=== PATIENT | male | born 1975 | race African-American/Black ===

== ENCOUNTER → 2017-04-22 | Outpatient (CLI) | payer BC ==
--- NOTE | ~2017-04-22 | US5 ---
[facility] A Service of [facility] & [facility] RADIOLOGY TEXT RESULTS PATIENT: MATYT BRAVO LOCATION: CGUS : 73 UNIT #: [id number] AGE: [address]: Steven Pandey MD SEX: M ORDER DR: [id number] [facility] [address]. [place], [place] [address] [id number] O MR#: [id number] Acc #: [id number] NAME: MATTY BRAVO : 1975 SEX: M STUDY DATE/TIME: 04/22/2017 9:10 UNIT: CGUS ROOM: STUDY DESCRIPTION: US Abdominal Complete Attending Physician: Steven Pandey M.D. Referring Physician: Steven Pandey M.D. Ordering Physician: Steven Pandey M.D. Primary Care Physician: Steven Pandey M.D. MEDICAL IMAGING REPORT This report is preliminary unless electronic signature is present EXAM Abdominal ultrasound, complete, 04/22/2017. HISTORY Abdomen pain for 3 months with nausea, vomiting and diarrhea. FINDINGS The liver demonstrates an increase in echotexture with attenuation of the ultrasound beam characteristic of fatty infiltration. No cystic or solid mass lesions were seen in the liver. The intra and extrahepatic bile ducts are not dilated. The gallbladder contained a 1.5 cm shadowing gallstone, but there is no evidence of gallbladder wall thickening or pericholecystic fluid. The common duct measures 4 mm. The pancreas is poorly visualized due to overlying bowel gas. The spleen measures 9.1 cm in greatest diameter. The visualized portions of the abdominal aorta and inferior vena cava are within normal limits. The kidneys are normal bilaterally. IMPRESSION 1. Mild fatty infiltration of the liver. 2. Cholelithiasis. 3. Poor visualization of the pancreas due to overlying bowel gas. Dictated by... Jose Lala M.D. THIS IS AN ELECTRONICALLY VERIFIED REPORT Jose Lala M.D. at 04/22/2017 4:33 PM KRT/ericka TD: 04/22/2017 13:17 JOB #: [id number] [facility] A Service of [facility] RADIOLOGY TEXT RESULTS PATIENT: MATTY BRAVO LOCATION: [facility] #: [id number] : [birth year] UNIT #: [id number] AGE: [address]: Steven Pandey MD SEX: M ORDER DR: MEDICAL IMAGING REPORT Page 1 of 1 COPY
== END | disposition home or self-care (01) ==
LOC: CGUS 08:33
DX: R19.7 Diarrhea, unspecified (principal); K76.0 Fatty (change of) liver, not elsewhere classified; K80.20 Calculus of gallbladder without cholecystitis without obstruction
CPT/HCPCS: 76700